=== PATIENT | female | born 1950 | race Caucasian/White ===

== ENCOUNTER 2017-06-10 08:56 | Day surgery (SDC) | payer MEDICARE, BC ==
[~2017-06-10] VITALS: Ht 160 cm; Wt 64.4 kg
[~2017-06-10 08:56] MED LIST: AMIT25 PO; ASPI81CH PO; CELE200 PO; DENAVIR5 GM TOP; Desyrel50 MG PO; FENO145 PO; FISH OIL 500 M1 EAC3 PO; Fish Oil; NIGHTTIME SLEEP25 MG PO; OXYACE5T PO; PENCICLOVIR 1%; PRED5 PO; PROM25 PO; Percocet 5-3251 EACH PO; RXHYD5325 PO; RXOXYACE PO; TRIHYD253A PO; VALA500 PO; VITAMIN D-32000 UNI1 PO; XARELTO1 EACH PO
[2017-06-11 04:33] LABS: BASOPHILS ABSOLUTE AUTO 0.04 K/mm3 (0.00-0.23); BASOPHILS PERCENT AUTO 0 % (0-2); EOSINOPHILS ABSOLUTE AUTO 0.09 K/mm3 (0.00-0.68); EOSINOPHILS PERCENT AUTO 1 % (0-6); Hematocrit 28.9 % (33.0-51.0); Hemoglobin 9.4 g/dL (11.5-16.0); IMMATURE GRAN ABSOLUTE AUTO 0.06 K/mm3 (0.00-0.10); IMMATURE GRAN PERCENT AUTO 0 % (0-1); LYMPHOCYTES ABSOLUTE AUTO 1.97 K/mm3 (0.84-5.20); LYMPHOCYTES PERCENT AUTO 14 % (21-46); MONOCYTES ABSOLUTE AUTO 1.05 K/mm3 (0.16-1.47); MONOCYTES PERCENT AUTO 7 % (4-13); Mean Corpuscular HGB 28.1 pg (26.0-34.0); Mean Corpuscular HGB Conc 32.5 g/dL (31.5-36.5); Mean Corpuscular Volume 86 fL (80-100); Mean Platelet Volume 9.3 fL (9.1-12.4); NEUTROPHILS ABSOLUTE AUTO 11.32 K/mm3 (1.96-9.15); NEUTROPHILS PERCENT AUTO 78 % (41-73); Platelet Count 309 K/mm3 (150-400); RDW Coefficient Variation 13.1 % (11.7-14.2); RDW Standard Deviation 41.1 fL (35.1-46.3); Red Blood Cell Count 3.35 M/mm3 (3.80-5.20); White Blood Cell Count 14.53 K/mm3 (4.00-11.30)
[2017-06-11 04:50] LABS: Anion Gap 7 mmol/L (6-16); Blood Urea Nitrogen 20 mg/dL (8-24); Bun/Creatinine Ratio 23.9 (12.0-20.0); CO2, Blood 26 mmol/L (21-32); Calcium, Blood 8.5 mg/dL (8.5-10.1); Chloride, Blood 106 mmol/L (98-108); Creatinine, Blood 0.84 mg/dL (0.40-1.00); Glomerular Filtration Rate >60 (60-); Glucose, Blood 99 mg/dL (70-99); Potassium, Blood 3.7 mmol/L (3.5-5.5); Sodium, Blood 139 mmol/L (136-145)
[2017-06-11] MEDS ORDERED: XARELTO10 MG PO (08:34)
[2017-06-11] MEDS ORDERED: Percocet 5-3251 EACH PO (08:35)
== END 2017-06-11 14:45 | disposition home or self-care (01) ==
LOC: SURS 08:56 → PRE IP 08:56 → SURS 08:56 → ORSCMMR 08:56 → PRE IP 10:30 → EDSTATUS 10:30 → SURS 15:55 → ORSCMMR 06-11 14:45 → SURS 06-11 14:45
PROVIDERS: Orthopaedic Surgery
PROC: 0SRC0JA Replacement of Right Knee Joint with Synthetic Substitute, Uncemented, Open Approach (ICD-10-PCS; principal; 2017-06-10 10:30)
DX: M17.11 Unilateral primary osteoarthritis, right knee (principal); E78.5 Hyperlipidemia, unspecified; E78.00 Pure hypercholesterolemia, unspecified; B15.9 Hepatitis A without hepatic coma; Z79.899 Other long term (current) drug therapy
CPT/HCPCS: 36415; 73560-RT; 80048; 85025; 86850; 86900; 86901; 88300; 97110; 97116; 97161; 97530; C1776; G8978; G8979; G8980; J0171; J0690; J0735; J1100; J1885; J2250; J2370; J2405; J2795; J7120

== ENCOUNTER → 2017-10-06 | Outpatient (CLI) | payer MEDICARE, BC ==
[~2017-10-06] MED LIST changes: +XARELTO10 MG PO
== END | disposition home or self-care (01) ==
LOC: LAB 11:11 → LAB SHORT 11:11
DX: B35.1 Tinea unguium (principal)
CPT/HCPCS: 87102

== ENCOUNTER → 2020-04-12 | Outpatient (CLI) | payer MEDICARE, BC | END | disposition home or self-care (01) | LOC: LAB SHORT 14:11 | DX: Z01.812 Encounter for preprocedural laboratory examination (principal); Z20.828 Contact with and (suspected) exposure to other viral communicable diseases | CPT/HCPCS: U0003 ==